=== PATIENT | male | born 1980 | race Caucasian/White ===

== ENCOUNTER 2017-01-16 10:59 | Emergency (ER) | payer OTHER ==
[~2017-01-16] VITALS: Ht 182.9 cm; Wt 111.0 kg
[2017-01-16 11:02] VITALS: TEMP 36.8; Ht 182.9 cm; Wt 111.0 kg
[2017-01-16] MEDS ORDERED: ACETAMINOPHEN 500 MG TAB PO STA (11:19)
[2017-01-16] MEDS ORDERED: DIPHTHERIA/TETANUS/PERTUSSIS 0.5 ML SYR/VIAL IM. ONE (11:30)
[2017-01-16] MEDS ORDERED: TETRACAINE HCL 0.5% OP SOLN 15 ML BTL OP STA (11:33)
--- NOTE | 2017-01-16 11:36 | EMERGENCY ROOM VISIT NOTE ---
ED Visit Note First contact with patient: 11:06 CHIEF COMPLAINT: Right eye trauma HISTORY OF PRESENT ILLNESS: This 36-year-old male patient presents to the emergency department approximately 20 minutes after hitting his eyeball with a nail he was trying to pull out of a piece of wood. Patient states he was standing on a ladder, attempting to put the nail with a hammer, when it shot back" and hit his eyeball. Patient states it was a large nail, however states it was new and not jf. Patient reports feeling that his eyeball is swollen, with blurry vision, occasional loss of vision, and states the discomfort is worse when he holds his head upside down. There has been a constant minimal pain and irritation, and patient reports bled through the iris, which is pulling at the bottom of the eye. The patient does not wear contacts or glasses. The patient rates the pain as pressure and as 5/10. The patient has not taken any medications for pain. The patient has not had previous injuries to this eye. Tetanus shot is not up to date. REVIEW OF SYSTEMS: A 6 system review of systems was completed with positives and pertinent negatives listed in the HPI. ALLERGIES: Bee stings MEDICATIONS: None PMH: None SOCIAL HISTORY: Patient lives locally with his family. He reports smoking one quarter pack cigarettes per day, denies alcohol or drug use. PHYSICAL EXAM: Vital Signs: Reviewed Nurse's notes, vital signs stable. Visual acuity 20/30 OD, 20/15 OS. GENERAL: This is a 6-year-old male, in no acute distress, but who is uncomfortable from the eye problem. Well-developed well- nourished. EYES: The pupils are equal round and reactive to light and accommodation. EOMs are full and without tenderness. There is minimal watery discharge from the right eye which is minimally injected. There is no obvious foreign body or abrasion visible on the cornea. There is no foreign body visible under the eyelid after lid eversion. No foreign body was seen embedded in the cornea under slit lamp exam. Hyphema was seen, approximately less than one quarter of the size of the iris. Intraocular pressures were obtained. Average of 32 OD, average of 20.5 OS. Fluorescein uptake was observed with ultraviolet light not significant for a corneal abrasion. EMERGENCY DEPARTMENT COURSE: I examined the patient. Tetracaine 2 drops were placed in the patient's right eye to help with discomfort. A slit lamp exam was performed as above. I contacted Dr. Xavier at noon superintendent transmission, who recommended hyphema precautions, no strenuous activity, keep head elevated 30, and use drops as discussed. Dr. Xavier recommended prednisolone 4 times daily, atropine twice daily, Cosopt twice daily, and recommended follow-up tomorrow. Patient's instructions were forwarded to the patient, who verbalizes understanding. The patient was discharged home in good condition. DIAGNOSIS: Hyphema with increased intraocular pressure. DIFFERENTIAL DIAGNOSIS: Corneal abrasion, ocular FB, elevated IOP, spontaneous hyphema, glaucoma, and others. DISCHARGE INSTRUCTIONS AND TREATMENT: Use eyedrops as prescribed. For pain control, you can use the following ylod-cck-bsjbasa medicines (if >12 yo): - Regular strength (325mg/tab) Tylenol (acetaminophen) 2 tabs every 4-6 hours as needed. Do not exceed 12 tablets in a 24 hour period. Avoid taking more than 4 grams (4000 mg) of Tylenol per day. This includes any other sources of acetaminophen you may take on a regular basis. Do not take ibuprofen, naproxen, or other NSAIDs. Do not take aspirin. These medications can worsen bleeding, or cause rebleeding to occur. Keep the head of your bed elevated at least 30. Get plenty of rest. Avoid strenuous activity. Follow-up with ophthalmology in 1-2 days. I did speak with Dr. Xavier who would like to see you in the office tomorrow. He states his office does open between 8 and 8:15 in the morning, so you should call them. Current/Historical Medications Scheduled Atropine Sulfate (Atropine Sulfate), 1 DROP OPR BID Dorzolamide Hcl-Timolol Maleat (Cosopt Oph), 1 DROPS OPR BID Prednisolone Acetate (Ophth) (Prednisolone Acetate), 1 DROPS OP QID Allergies Coded Allergies: BEE STING (Unverified Allergy, Unknown, UNKNOWN, 01/16/17) Vital Signs Date Time Temp Pulse Resp B/P (MAP) Pulse Ox O2 Delivery O2 Flow Rate FiO2 01/16/17 12:28 78 16 136/72 97 01/16/17 11:02 36.8 80 16 148/78 97 Room Air Medications Administered Medications (Trade) Dose Ordered Sig/Luciana Route Start Time Stop Time Status Last Admin Dose Admin Diphtheria/ Pertussis/Tetanus Vacc (Adacel Inj) 0.5 ml ONCE ONCE IM. 01/16/17 11:30 01/16/17 11:31 DC 01/16/17 11:39 0.5 ML Tetracaine HCl (Pontocaine 0.5% Oph Soln) 1 drops NOW STAT OP 01/16/17 11:33 01/16/17 11:34 DC 01/16/17 11:50 1 DROPS Departure Information Impression Primary Impression: Hyphema of right eye Dispostion Home / Self-Care Condition GOOD Prescriptions Dorzolamide Hcl-Timolol Maleat (COSOPT OPH) 1 Orly Orly 1 DROPS OPR BID for 10 Days, #300 ML 6 Refills Prov: Roseanne Cuellar PA-C 01/16/17 Prednisolone Acetate (Ophth) (PREDNISOLONE ACETATE) 1 % Nidia 1 DROPS OP QID for 10 Days, #10 ML Prov: Roseanne Cuellar PA-C 01/16/17 Atropine Sulfate (Atropine Sulfate) 1 % Orly 1 DROP OPR BID for 10 Days, #1 BTL Prov: Roseanne Cuellar PA-C 01/16/17 Referrals No Doctor, Assigned (PCP) Moreno Xavier D.O. Patient Instructions ED Eye Injury Hyphema, My [facility] Additional Instructions Use eyedrops as prescribed. For pain control, you can use the following qjhf-dnc-wqbaxkz medicines (if >12 yo): - Regular strength (325mg/tab) Tylenol (acetaminophen) 2 tabs every 4-6 hours as needed. Do not exceed 12 tablets in a 24 hour period. Avoid taking more than 4 grams (4000 mg) of Tylenol per day. This includes any other sources of acetaminophen you may take on a regular basis. Do not take ibuprofen, naproxen, or other NSAIDs. Do not take aspirin. These medications can worsen bleeding, or cause rebleeding to occur. Keep the head of your bed elevated at least 30. Get plenty of rest. Avoid strenuous activity. Follow-up with ophthalmology in 1-2 days. I did speak with Dr. Xavier who would like to see you in the office tomorrow. He states his office does open between 8 and 8:15 in the morning, so you should call them.
[2017-01-16] MEDS ORDERED: PRED1SUS17 OP (12:10)
[2017-01-16] MEDS ORDERED: DORZ1SOL6 OPR (12:10)
[2017-01-16] MEDS ORDERED: ATRO1SOL13 OPR (12:10)
[2017-01-16 12:28] VITALS: BP 136/72; PULSE 78; O2SAT 97
== END 2017-01-16 12:30 | disposition home or self-care (01) ==
LOC: C.EDB 11:00 → C.EDD 12:30
DX: S05.11XA Contusion of eyeball and orbital tissues, right eye, initial encounter (principal); W22.8XXA Striking against or struck by other objects, initial encounter; Y93.89 Activity, other specified; Y99.8 Other external cause status; F17.210 Nicotine dependence, cigarettes, uncomplicated; Z23 Encounter for immunization

== ENCOUNTER 2017-06-17 23:13 | Emergency (ER) | payer OTHER ==
[~2017-06-17] VITALS: Ht 180.3 cm; Wt 108.0 kg
[~2017-06-17 23:13] MED LIST: ATRO1SOL13 OPR; DORZ1SOL6 OPR
[2017-06-17 23:17] VITALS: TEMP 36.7; Ht 180.3 cm; Wt 108.0 kg
[2017-06-18] MEDS ORDERED: LIDOCAINE/EPINEPHRINE 1% 20 ML VIAL INFIL ONE
[2017-06-18] MEDS ORDERED: SEPTRA DS HOME PACK 1 EA VIAL PO ONE (00:45)
--- NOTE | 2017-06-18 00:45 | EMERGENCY ROOM VISIT NOTE ---
History First contact with patient: 23:41 Chief Complaint: INFECTION Stated Complaint: MASSIVE CYST ON TAILBONE Nursing Triage Summary: patient has c/o cyst to sacrum that has worsened over the past three days . denies drainage. History of Present Illness The patient is a 36 year old male who presents to the Emergency Room with complaints of pain in the area of his tailbone. The patient states that he believes he has a cyst beside his tailbone. He reports he has had pain and swelling for the past 3-4 weeks. This has been progressively worsening. He states that the pain has become severe and he is unable to sit due to the pain. He rates the discomfort a 4/10. There has been no drainage. He denies any fevers. The patient denies any history of abscesses. The patient also reports that he had another area which she believes was an abscess on his left buttock. This has improved on its own and is almost gone. The patient is not a diabetic. Review of Systems A complete 10 point review of systems was reviewed with the patient with pertinent positives and negatives as per history of present illness. All else were negative. Past Medical/Surgical History Medical Problems: (1) No Known Active Medical Problems Social History Smoking Status: Current Every Day Smoker Occupation Status: employed Current/Historical Medications Scheduled Sulfa/Trimethoprim (Bactrim Ds 800MG/160MG), 1 TAB PO BID Physical Exam Vital Signs Date Time Temp Pulse Resp B/P (MAP) Pulse Ox O2 Delivery O2 Flow Rate FiO2 06/18/17 01:12 94 20 135/80 99 06/17/17 23:17 36.7 100 18 135/81 95 Room Air Physical Exam VITALS: Vitals are noted on the nurse's note and reviewed by myself. Vital signs stable. GENERAL: This is a 36-year-old male, in no acute distress, nondiaphoretic, well- developed well-nourished. SKIN: There is an area of induration, erythema and central fluctuance just left of the gluteal cleft. There is no drainage. There is no additional small, 1 cm area of mild induration to the left medial buttock. No fluctuance is palpable. No overlying erythema. NEURO: Patient was alert and oriented to person place and time. Medical Decision & Procedures Medications Administered Medications (Trade) Dose Ordered Sig/Luciana Route Start Time Stop Time Status Last Admin Dose Admin Trimethoprim/ Sulfamethoxazole (Sulfameth/ Trimeth Ds 800/ 160MG Home Pack) 1 homepack UD ONCE PO 06/18/17 00:45 06/18/17 00:46 DC 06/18/17 01:08 1 HOMEPACK Procedure Verbal consent was obtained to perform the procedure. After saline and Betadine cleansing and 6 mL of 1% buffered lidocaine with epinephrine anesthesia , the abscess was incised with a number 11 scalpel blade. A large amount of purulent material was released with more expressed by pressure. A swab was obtained for culture. The abscess cavity was further probed with a needle electric pile driver operator and the deep pocket expressed. The abscess cavity was then copiously irrigated with sterile saline under pressure. The area was then packed with plain packing. The area was cleaned with sterile saline and dressed with bacitracin and a bulky bandage. The patient tolerated the procedure well. Medical Decision Differential diagnosis includes pilonidal cyst, perirectal abscess, cellulitis, among others. The patient is a 36-year-old male who presents today complaining of pain and swelling in the area of the tailbone. Exam reveals an infected pilonidal cyst. Incision and drainage was performed as noted in the procedure section. Culture was obtained and is pending. Patient will be placed on Bactrim. He was given information for general surgery for follow-up. Based on the patient's presentation and work up, I feel the patient is stable for outpatient treatment. The patient was educated to return to the emergency department for any worsening of their current condition or new/concerning symptoms. He will follow up with general surgery and his PCP. Medication Reconcilliation Current Medication List: was personally reviewed by [place] Blood Pressure Screening Patient's blood pressure: Normal blood pressure Impression Primary Impression: Pilonidal abscess Departure Information Dispostion Home / Self-Care Condition GOOD Prescriptions Sulfa/Trimethoprim (Bactrim Ds 800MG/160MG) Tab 1 TAB PO BID for 6 Days, #12 TAB Prov: Taylor Colby .STEVEN 06/18/17 Referrals No Doctor, Assigned (PCP) Patient Instructions My [facility] Additional Instructions You were seen in the Emergency Department for Incision and Drainage of a pilonidal abscess. You will NEED to return to the Emergency Department to have the packing removed/changed in 48 hours. This packing is NOT dissolvable and WILL need to be removed by a health care provider. Try to leave the packing in place until you return to the Emergency Department. You were prescribed Bactrim to be taken twice daily as prescribed. Both of these medications are antibiotics. Stop these medications and contact a medical provider if you were to develop any significant adverse side effects including: wheezing, shortness of breath, passing out, vomiting, or a diffuse rash. Always take antibiotics as directed and COMPLETE the ENTIRE course regardless of the improvement of your symptoms. Change your packing as needed when it becomes saturated. Look for signs of infection of the wound including: increased pain, swelling, foul discharge, streaking, or increased temperature. If any of these are noticed you should return to the Emergency Department for further assessment and treatment. For pain control, you can use the following ergw-lgx-ohvlzvo medicines (if >12 yo): - Regular strength (325mg/tab) Tylenol (acetaminophen) 2 tabs every 4-6 hours as needed. Do not exceed 12 tablets in a 24 hour period. Avoid taking more than 4 grams (4000 mg) of Tylenol per day. This includes any other sources of acetaminophen you may take on a regular basis. - Regular strength (200 mg/tab) Advil (ibuprofen) 1-2 tabs every 4-6 hours as needed. Do not exceed a dose of 3200 mg per day. Return to the emergency department if your symptoms worsen despite treatment course outlined above.
[2017-06-18] MEDS ORDERED: SULF800T23 PO (01:07)
[2017-06-18 01:12] VITALS: BP 135/80; PULSE 94; O2SAT 99
== END 2017-06-18 01:13 | disposition home or self-care (01) ==
LOC: C.EDB 23:14 → C.EDA 06-18 01:13
DX: L05.01 Pilonidal cyst with abscess (principal)

== ENCOUNTER 2017-10-16 13:39 | Emergency (ER) | payer OTHER ==
[~2017-10-16] VITALS: Ht 165.1 cm; Wt 101.0 kg
[2017-10-16 13:43] VITALS: TEMP 37.5; Ht 165.1 cm; Wt 101.0 kg
[2017-10-16] MEDS ORDERED: SODIUM CHLORIDE 0.9% 1000ML 1,000 ML IV STA (13:56)
[2017-10-16] MEDS ORDERED: IBUPROFEN 600 MG TAB PO STA (13:56)
[2017-10-16] MEDS ORDERED: ACET-1256 PO (14:07)
[2017-10-16] MEDS ORDERED: IBUP-1050 PO (14:07)
[2017-10-16] MEDS ORDERED: DEXT30TA7 PO (14:07)
[2017-10-16 14:32] LABS: BASO % 0.2 %; BASO ABS # 0.01 K/uL (0-0.2); HEMATOCRIT 42.8 % (42-52); HEMOGLOBIN 15.1 g/dL (14.0-18.0); IG# 0.01 K/uL (0.00-0.02); LYMPH % 11.3 %; LYMPH ABS # 0.65 K/uL (1.2-3.4); MEAN CELL VOLUME 86.3 fL (80-100); MEAN CORPUSCULAR HEMOGLOBIN 30.4 pg (25-34); MEAN CORPUSCULAR HGB CONC 35.3 g/dl (32-36); MEAN PLATELET VOLUME 11.8 fL (7.4-10.4); MONO % 9.1 %; MONO ABS # 0.52 K/uL (0.11-0.59); NEUT % 79.2 %; NEUT ABS # 4.55 K/uL (1.4-6.5); PLATELET COUNT 116 K/uL (130-400); RED CELL DISTRIBUTION WIDTH CV 13.2 % (11.5-14.5); RED CELL DISTRIBUTION WIDTH SD 41.8 fL (36.4-46.3); WHITE BLOOD COUNT 5.74 K/uL (4.8-10.8)
--- NOTE | 2017-10-16 14:39 | DIAGNOSTIC IMAGING REPORT ---
CHEST 2 VIEWS ROUTINE CLINICAL HISTORY: 37 years-old Male presenting with fever, cough. TECHNIQUE: PA and lateral views of the chest were obtained. COMPARISON: None. FINDINGS: Cardiomediastinal silhouette normal. Lungs and pleural spaces clear. Osseous structures normal. Upper abdomen normal. IMPRESSION: 1. No acute cardiopulmonary disease. Electronically signed by: Drew Merida M.D. 10/16/2017 2:37 PM Dictated Date/Time: 10/16/2017 2:37 PM
[2017-10-16 14:50] LABS: ALBUMIN 3.7 gm/dl (3.4-5.0); ALT/SGPT 32 U/L (12-78); BLOOD UREA NITROGEN 10 mg/dl (7-18); CALCIUM 8.3 mg/dl (8.5-10.1); CARBON DIOXIDE 24 mmol/L (21-32); CREATININE 0.77 mg/dl (0.60-1.40); GLUCOSE 105 mg/dl (70-99); LIPASE 98 U/L (73-393); POTASSIUM 3.2 mmol/L (3.5-5.1); SODIUM 138 mmol/L (136-145)
[2017-10-16 14:53] LABS: ALKALINE PHOSPHATASE 62 U/L (45-117); AST/SGOT 25 U/L (15-37); TOTAL PROTEIN 7.4 gm/dl (6.4-8.2)
[2017-10-16 14:55] LABS: INFLUENZA B ANTIGEN POS for Influ B (NEG)
[2017-10-16] MEDS ORDERED: POTASSIUM CHLORIDE 10 MEQ TABCR PO STA (15:35)
[2017-10-16] MEDS ORDERED: HYDR5SYP11 PO (15:44)
--- NOTE | 2017-10-16 15:46 | EMERGENCY ROOM VISIT NOTE ---
History First contact with patient: 13:48 Chief Complaint: FLU LIKE SX Stated Complaint: FEVER FOR 6 DAYS GETTING WORSE, FLU SYPMTOMS History of Present Illness The patient is a 37 year old male who presents to the Emergency Room with complaints of fever and body aches for 6 days. The patient also states he cannot sleep. He is only getting 20 minutes at a time. He also admits to slight cough and sore throat. He denies any headache, head congestion, nausea or vomiting. He states he feels like the has to move his bowels but nothing comes out. He has not eating very much. He states he is drinking but thinks he is sweating it all out. He denies any urinary symptoms of frequency, urgency , dysuria or hematuria. The patient states he has intermittent sharp pains at the base of both lungs. Review of Systems 10 system review was performed and was negative unless stated otherwise history of present illness. Past Medical/Surgical History Medical Problems: (1) No Known Active Medical Problems Social History Smoking Status: Current Every Day Smoker Alcohol Use: occasionally Occupation Status: employed Current/Historical Medications Scheduled Acetaminophen (Tylenol), 1,000 MG PO DIRECTED Dextromethorphan-Guaifenesin (Mucinex Dm), 1 TAB PO Q12 Ibuprofen (Advil), 400-600 MG PO DIRECTED Physical Exam Vital Signs Date Time Temp Pulse Resp B/P (MAP) Pulse Ox O2 Delivery O2 Flow Rate FiO2 18 13:43 37.5 84 18 137/89 96 Room Air Physical Exam PHYSICAL EXAM: Vital Signs were reviewed: Reviewed Nurse's notes and agree. Oxygen saturation is 96% on room air which is normal . GENERAL: 37-year-old male appears in no acute distress. MENTAL STATUS: Alert, oriented, coherent. EARS: Canals with some cerumen. Able to visualize TMs good light reflex, no erythema or fluid level noted. NOSE: Nasal mucosa with moderate erythema engorgement. PHARYNX: Moderate erythema, no edema noted. No exudate noted. Airway is adequate. NECK: Supple, non-tender. No lymphadenopathy noted. LUNGS: Clear to auscultation without wheezes rales or rhonchi. CARDIAC: Regular rate and rhythm without murmur. Abdomen: Positive bowel sounds all 4 quadrants. Soft, nontender to palpation without organomegaly or masses. SKIN: No rashes noted. Medical Decision & Procedures ER Provider Diagnostic Interpretation: CHEST 2 VIEWS ROUTINE CLINICAL HISTORY: 37 years-old Male presenting with fever, cough. TECHNIQUE: PA and lateral views of the chest were obtained. COMPARISON: None. FINDINGS: Cardiomediastinal silhouette normal. Lungs and pleural spaces clear. Osseous structures normal. Upper abdomen normal. IMPRESSION: 1. No acute cardiopulmonary disease. Electronically signed by: Drew Merida M.D. 10/16/2017 2:37 PM Laboratory Results 10/16/17 14:10 Red Blood Count 4.96, Mean Corpuscular Volume 86.3, Mean Corpuscular Hemoglobin 30.4, Mean Corpuscular Hemoglobin Concent 35.3, Mean Platelet Volume 11.8, Neutrophils (%) (Auto) 79.2, Lymphocytes (%) (Auto) 11.3, Monocytes (%) (Auto) 9.1, Eosinophils (%) (Auto) 0.0, Basophils (%) (Auto) 0.2, Neutrophils # (Auto) 4.55, Lymphocytes # (Auto) 0.65, Monocytes # (Auto) 0.52, Eosinophils # (Auto) 0.00, Basophils # (Auto) 0.01 10/16/17 14:10 Test 10/16/17 14:10 10/16/17 14:15 White Blood Count 5.74 K/uL (4.8-10.8) Red Blood Count 4.96 M/uL (4.7-6.1) Hemoglobin 15.1 g/dL (14.0-18.0) Hematocrit 42.8 % (42-52) Mean Corpuscular Volume 86.3 fL (80-100) Mean Corpuscular Hemoglobin 30.4 pg (25-34) Mean Corpuscular Hemoglobin Concent 35.3 g/dl (32-36) Platelet Count 116 K/uL (130-400) Mean Platelet Volume 11.8 fL (7.4-10.4) Neutrophils (%) (Auto) 79.2 % Lymphocytes (%) (Auto) 11.3 % Monocytes (%) (Auto) 9.1 % Eosinophils (%) (Auto) 0.0 % Basophils (%) (Auto) 0.2 % Neutrophils # (Auto) 4.55 K/uL (1.4-6.5) Lymphocytes # (Auto) 0.65 K/uL (1.2-3.4) Monocytes # (Auto) 0.52 K/uL (0.11-0.59) Eosinophils # (Auto) 0.00 K/uL (0-0.5) Basophils # (Auto) 0.01 K/uL (0-0.2) RDW Standard Deviation 41.8 fL (36.4-46.3) RDW Coefficient of Variation 13.2 % (11.5-14.5) Immature Granulocyte % (Auto) 0.2 % Immature Granulocyte # (Auto) 0.01 K/uL (0.00-0.02) Anion Gap 11.0 mmol/L (3-11) Est Creatinine Clear Calc Drug Dose 145.0 ml/min Estimated GFR () 135.3 Estimated GFR (Non- 116.7 BUN/Creatinine Ratio 12.9 (10-20) Calcium Level 8.3 mg/dl (8.5-10.1) Total Bilirubin 0.3 mg/dl (0.2-1) Direct Bilirubin < 0.1 mg/dl (0-0.2) Aspartate Amino Transf (AST/SGOT) 25 U/L (15-37) Alanine Aminotransferase (ALT/SGPT) 32 U/L (12-78) Alkaline Phosphatase 62 U/L (45-117) Total Protein 7.4 gm/dl (6.4-8.2) Albumin 3.7 gm/dl (3.4-5.0) Lipase 98 U/L (73-393) Influenza Type A Antigen Neg for Influ A (NEG) Influenza Type B Antigen POS for Influ B (NEG) Medications Administered Medications (Trade) Dose Ordered Sig/Luciana Route Start Time Stop Time Status Last Admin Dose Admin Sodium Chloride 1,000 ml @ 999 mls/hr Q1H1M STAT IV 10/16/17 13:56 10/16/17 14:56 DC 10/16/17 14:17 999 MLS/HR Ibuprofen (Motrin Tab) 600 mg NOW STAT PO 10/16/17 13:56 10/16/17 13:58 DC 10/16/17 14:17 600 MG ED Course Patient was evaluated. The patient's EMR medication list were reviewed. The patient was given Motrin 600 mg p.o. for fever. IV access was obtained. The patient was given 1 L normal saline wide open. CBC and differential, renal profile, LFTs and lipase levels were ordered. Labs are reviewed and were unremarkable. White count is normal. Urinalysis was ordered. Blood cultures 2 was ordered. Rapid strep was negative, culture is pending. Rapid influenza was negative for influenza A but positive for influenza B.. Chest x-ray was ordered interpreted by the radiologist and myself as above without any acute findings. Labs are reviewed. White count was normal. Potassium was slightly low at 3.2. The patient was given K Dur 10 mEq orally. . The patient was given Hycodan for his cough and discharged home in stable condition. Medical Decision Differential diagnosis include influenza, pneumonia, bronchitis, URI [place] Drug Monitoring Program Search Results: patient reviewed within database Medication Reconcilliation Current Medication List: was personally reviewed by me Blood Pressure Screening Patient's blood pressure: Normal blood pressure Impression Primary Impression: Influenza B Departure Information Dispostion Home / Self-Care Prescriptions Hydrocodone W/ Homatropine (HYCODAN 5/1.5MG 5 ML) 1 Syp Syp 5-10 ML PO Q4H Y for Cough, #200 ML Prov: Nati Catalan, STEVEN 10/16/17 Referrals No Doctor, Assigned (PCP) Forms HOME CARE DOCUMENTATION FORM, IMPORTANT VISIT INFORMATION Patient Instructions My [facility] Additional Instructions Push fluids. Rest. Tylenol and/or ibuprofen as needed for fever and body aches. Take Hycodan as needed for cough. Do not drive while taking this medicine. If symptoms are worsening, return to ER.
[2017-10-16] MEDS ORDERED: HYDROCODONE/HOMATROPINE SYRUP 5MG/1.5MG 5ML UDP PO STA (15:47)
[2017-10-16 16:10] VITALS: BP 145/83; PULSE 86; O2SAT 0
== END 2017-10-16 16:11 | disposition home or self-care (01) ==
LOC: C.EDB 13:41
DX: J10.1 Influenza due to other identified influenza virus with other respiratory manifestations (principal); E87.6 Hypokalemia; F17.200 Nicotine dependence, unspecified, uncomplicated